=== PATIENT | female | born 1985 | race Caucasian/White ===

== ENCOUNTER 2018-11-17 16:19 | Emergency (ER) | payer BC, OTHER ==
[2018-11-17 17:08] VITALS: BP 126/71
[2018-11-17] MEDS ORDERED: Ondansetron ODT TAB* 4 MG PO ONE (17:31)
--- NOTE | 2018-11-17 17:39 | UC ---
Nausea/Vomiting/Diarrhea HPI - HPI Summary HPI Summary: 33-year-old female presents with complaints of nausea, vomiting, and diarrhea since last evening. Reports multiple episodes of vomiting throughout the day today. Has been unable to keep down any fluids or food. Last episode of vomiting was approximately 1-1/2 hours ago. Reports approximately 3 episodes of watery diarrhea today. Symptoms associated with chills and mild abdominal cramping. Denies fever, dizziness, lightheadedness, sore throat, hematemesis, blood in stool, melena, back or flank pain, dysuria, frequency, urgency, hematuria, recent travel out of the country, or recent antibiotic use. - History of Current Complaint Chief Complaint: UCAbdominalPain Stated Complaint: STOMACH ISSUES Time Seen by Provider: 11/17/18 17:26 Hx Obtained From: Patient Hx Last Menstrual Period: 11/10/18 Pain Intensity: 4 - Allergies/Home Medications Allergies/Adverse Reactions: Allergies Allergy/AdvReac Type Severity Reaction Status Date / Time amoxicillin Allergy Severe Hives Verified 11/17/18 17:09 Penicillins Allergy Unknown Hives Verified 11/17/18 17:09 PMH/Surg Hx/FS Hx/Imm Hx Previously Healthy: Yes - Denies signifcant PMH - Surgical History Surgical History: Yes Surgery Procedure, Year, and Place: x2. D&C - Family History Known Family History: Positive: Non-Contributory - Social History Occupation: Unemployed Lives: With Family Alcohol Use: Rare Substance Use Type: None Smoking Status (MU): Former Smoker Type: Cigarettes Amount Used/How Often: 1 ppd Length of Time of Smoking/Using Tobacco: 13 years Have You Smoked in the Last Year: No When Did the Patient Quit Smoking/Using Tobacco: 2011 - Immunization History Most Recent Tetanus Shot: unk Review of Systems All Other Systems Reviewed And Are Negative: Yes Constitutional: Positive: Chills. Negative: Fever ENT: Negative: Sore Throat Respiratory: Negative: Shortness Of Breath, Cough Cardiovascular: Negative: Palpitations, Chest Pain Gastrointestinal: Positive: Vomiting, Diarrhea, Nausea. Negative: Abdominal Pain Genitourinary: Negative: Dysuria, Hematuria, Frequency, Urgency Musculoskeletal: Positive: Negative Neurological: Positive: Negative Is Patient Immunocompromised?: No Physical Exam - Summary Physical Exam Summary: GENERAL APPEARANCE: Well developed, well nourished, alert and cooperative, and appears to be in no acute distress. EYES: Conjunctiva clear. No drainage. EARS: External auditory canals and tympanic membranes clear, hearing grossly intact. NOSE: No nasal discharge. THROAT: Pharynx normal. No tonsilar inflammation, swelling, exudate, or lesions. Uvula midline. NECK: Neck supple, non-tender without lymphadenopathy. CARDIAC: Normal S1 and S2. No S3, S4 or murmurs. Rhythm is regular. There is no peripheral edema, cyanosis or pallor. Extremities are warm and well perfused. Capillary refill is less than 2 seconds. Peripheral pulses intact. LUNGS: Clear to auscultation without rales, rhonchi, wheezing or diminished breath sounds. ABDOMEN: Positive bowel sounds. Soft, nondistended, nontender. No guarding or rebound. No masses or hepatosplenomegally. No CVA tenderness. MUSKULOSKELETAL: ROM intact to all extremities. No joint erythema or tenderness. Normal muscular development. Normal gait. SKIN: Skin normal color, texture and turgor with no lesions or eruptions. Triage Information Reviewed: Yes Vital Signs: Initial Vital Signs Temp 98.6 F 11/17/18 17:03 Pulse 95 11/17/18 17:03 Resp 14 11/17/18 17:03 BP 126/71 11/17/18 17:03 Pulse Ox 100 11/17/18 17:03 Vital Signs Reviewed: Yes Re-Evaluation - Re-Evaluation First Eval Re-Evaluation Time: 18:09 Change: Improved Comment: Patient states nausea has improved after receiving ondansetron. She is taking PO fluids with no further episodes of vomiting or diarrhea. Will d/c home to continue oral rehydration. Naus/Vom/Diarrhea Course/Dx - Course Course Of Treatment: 33-year-old female presents with complaints of nausea, vomiting, and diarrhea since last evening. Reports multiple episodes of vomiting throughout the day today. Has been unable to keep down any fluids or food. Last episode of vomiting was approximately 1-1/2 hours ago. Reports approximately 3 episodes of watery diarrhea today. Symptoms associated with chills and mild abdominal cramping. Denies fever, dizziness, lightheadedness, sore throat, hematemesis, blood in stool, melena, back or flank pain, dysuria, frequency, urgency, hematuria, recent travel out of the country, or recent antibiotic use. Afebrile. Vital signs stable. Exam was overall unremarkable. Patient was given ondansetron 8 mg by mouth with improvement in her nausea. She was then given a fluid challenge which she was able to tolerate without any further episodes of vomiting or diarrhea during her course of treatment. I will prescribe her ondansetron 4 mg by mouth every 6-8 hours as needed for nausea and vomiting and recommend oral rehydration at home. She is to return here or with her primary care provider in 3-5 days if symptoms do not improve. Anticipatory guidance and warning symptoms requiring immediate evaluation the emergency room were reviewed with the patient. Verbalizes understanding and agrees with plan of care. - Differential Dx/Diagnosis Differential Diagnoses - Female: Gastroenteritis (Viral), Gastroenteritis ( Bacterial), Vomiting, Diarrhea, Colitis, Renal Calculi, Gastritis Provider Diagnosis: Nausea, vomiting, and diarrhea Condition At Discharge: Stable Discharge - Sign-Out/Discharge Documenting (check all that apply): Patient Departure All imaging exams completed and their final reports reviewed: No Studies - Discharge Plan Condition: Stable Disposition: HOME Prescriptions: Ondansetron ODT TAB* [Zofran 4 MG Odt TAB*] 4 mg PO Q6H PRN #6 tab.odt PRN Reason: Nausea/Vomiting Patient Education Materials: Acute Nausea and Vomiting (ED), Acute Diarrhea (ED ) Referrals: No Primary Care Phys,NOPCP [Primary Care Provider] - Additional Instructions: You were given a medication called ondansetron (Zofran) in the clinic today for your nausea and vomiting at 5:45 pm. I have set a prescription for some addition tablets to use at home. Take 1 tab every 6-8 hours as needed for nausea or vomiting. Drink plenty of fluids. Try to drink small amounts frequently to avoid filling your stomach to full which can cause vomiting. If you are still having vomiting, stick with a clear liquid diet including soup broths, Jello, popsicles, and cameron-felipe with carbonation stirred out of it. You may then advance to a bland diet including saltine crackers, toast, bananas , rice, and applesauce. Then return to a normal diet as tolerated. Be sure to use good hand hygiene to prevent spreading infection. Follow up here or with your primary care provider in 3-5 days if symptoms persist. Seek immediate medical attention in the emergency room if you develop fever greater than 100.5 F, have severe abdominal pain, persistent vomiting, blood in your vomit or stool, or any worsening of symptoms. - Billing Disposition and Condition Condition: STABLE Disposition: Home - Attestation Statements Provider Attestation: I was available for consult. This patient was seen by the JAMIL. The patient was not presented to, seen by, or examined by me. -Dino
== END 2018-11-17 18:22 | disposition home or self-care (01) ==
LOC: UCEAST 16:19
DX: R11.2 Nausea with vomiting, unspecified (principal); R19.7 Diarrhea, unspecified; R68.83 Chills (without fever); R10.9 Unspecified abdominal pain
CPT/HCPCS: 99202; A9270-GY; G0463